=== PATIENT | female | born 1950 ===

== ENCOUNTER 2018-03-11 05:45 | Day surgery (SDC) | payer OTHER ==
[~2018-03-11 05:45] MED LIST: LISINOPRIL20 MG PO; METFORMIN HCL500 MG PO; ZOCOR20 MG PO
[2018-03-11] MEDS ORDERED: MACROBID 100 M100 MG PO (09:41)
[2018-03-11] MEDS ORDERED: ULTRACET PO (09:41)
== END 2018-03-11 13:00 | disposition home or self-care (01) ==
LOC: CIR.AMB 05:45
DX: D25.1 Intramural leiomyoma of uterus (principal); N81.3 Complete uterovaginal prolapse; N39.3 Stress incontinence (female) (male); N84.0 Polyp of corpus uteri; N72 Inflammatory disease of cervix uteri
CPT/HCPCS: 57283; 57210; 57288; 58550; C1771